=== PATIENT | female | born 1990 ===

== ENCOUNTER 2017-12-05 13:40 | Emergency (ER) | payer SELFPAY ==
[2017-12-05 13:55] VITALS: BMI 29.3
--- NOTE | 2017-12-05 14:03 | ED PDOC ---
Arrival/HPI - General Time Seen by Provider: 12/05/17 13:54 Historian: Patient - History of Present Illness Narrative History of Present Illness (Text): 12/05/17 13:55 A 27 year old female presents to the emergency department complaining of suicidal ideation with plan to take pills. Patient was seen at [facility] and instructed to come to the emergency room for further psych evaluation. Patient denies any fever, chills, nausea, vomiting, diarrhea, abdominal pain, chest pain, shortness of breath, cough, homicidal ideation, auditory/visual hallucinations or any other complaints. Time/Duration: Prior to Arrival Past Medical History - Provider Review Nursing Documentation Reviewed: Yes Family/Social History - Physician Review Nursing Documentation Reviewed: Yes Family/Social History: No Known Family HX Allergies/Home Meds Allergies/Adverse Reactions: Allergies No Known Allergies Allergy (Unverified 12/05/17 13:55) Home Medications: Home Meds Medication Instructions Recorded Confirmed Naproxen [Naprosyn] 0 mg PO PRN PRN 12/05/17 12/05/17 Review of Systems - Physician Review All systems were reviewed & negative as marked: Yes - Review of Systems Constitutional: absent: Fevers, Night Sweats Respiratory: absent: SOB, Cough Cardiovascular: absent: Chest Pain Gastrointestinal: absent: Abdominal Pain, Diarrhea, Nausea, Vomiting Psychiatric: Suicidal Ideation. absent: Other (Homicidal ideation, Hallucinations) Physical Exam Vital Signs Temp Pulse Resp BP Pulse Ox 12/05/17 18:47 77 18 124/82 99 12/05/17 13:50 97.5 F L 80 16 120/75 99 Appearance: Positive for: Well-Appearing, Non-Toxic, Comfortable Pain Distress: None Mental Status: Positive for: Alert and Oriented X 3 - Systems Exam Head: Present: Atraumatic, Normocephalic Pupils: Present: PERRL Extroacular Muscles: Present: EOMI Conjunctiva: Present: Normal Mouth: Present: Moist Mucous Membranes Respiratory/Chest: Present: Clear to Auscultation, Good Air Exchange. No: Respiratory Distress, Accessory Muscle Use Cardiovascular: Present: Regular Rate and Rhythm, Normal S1, S2. No: Murmurs Abdomen: Present: Normal Bowel Sounds. No: Tenderness, Distention, Peritoneal Signs Upper Extremity: Present: Normal Inspection. No: Cyanosis, Edema Lower Extremity: Present: Normal Inspection. No: Edema Neurological: Present: GCS=15, CN II-XII Intact, Speech Normal Skin: Present: Warm, Dry, Normal Color. No: Rashes Psychiatric: Present: Alert, Oriented x 3, Suicidal Ideation. No: Homicidal Ideation, Hallucinations Medical Decision Making ED Course and Treatment: 12/05/17 13:55 Impression: A 27 year old female with suicidal ideation. No somatic complaints. Differential Diagnosis included but are not limited to: Suicidal ideation Plan: -- Chest xray -- EKG -- Labs -- Urinalysis -- 1:1 -- Reassess and disposition Progress Notes: 12/05/17 14:35 EKG shows NSR at 95bpm with RAD. No st changes 12/05/17 15:18 Cxray negative. Labs reviewed. Patient medically cleared pending psych 12/05/17 16:49 Patient refusing voluntary psych admission. Plan is to have [facility] screener evaluate patient. 12/05/17 22:25 Patient continues to be pending [facility] screener. Will sign out to Dr. Christiansen to follow-up [facility] recommendations and reevaluate. - Lab Interpretations Lab Results: 12/05/17 14:00 12/05/17 14:00 Lab Results 12/05/17 14:00: Alcohol, Quantitative < 10 12/05/17 14:00: Salicylates < 1 L, Acetaminophen < 10.0 L 12/05/17 14:00: Urine Opiates Screen Negative, Urine Methadone Screen Negative, Ur Barbiturates Screen Negative, Ur Phencyclidine Scrn Negative, Ur Amphetamines Screen Negative, U Benzodiazepines Scrn Negative, U Oth Cocaine Metabols Negative, U Cannabinoids Screen Negative 12/05/17 14:00: Sodium 142, Potassium 3.8, Chloride 104, Carbon Dioxide 26, Anion Gap 16, BUN 11, Creatinine 0.6 L, Est GFR ( Amer) > 60, Est GFR ( Non-Af Amer) > 60, Random Glucose 96, Calcium 10.2, Total Bilirubin 0.3, AST 31 , ALT 26, Alkaline Phosphatase 83, Total Protein 9.0 H, Albumin 4.7, Globulin 4.3, Albumin/Globulin Ratio 1.1 12/05/17 14:00: Urine Color Yellow, Urine Appearance Clear, Urine pH 6.0, Ur Specific [place] >= 1.030, Urine Protein Negative, Urine Glucose (UA) Negative, Urine Ketones Trace H, Urine Blood Trace-intact H, Urine Nitrate Negative, Urine Bilirubin Negative, Urine Urobilinogen 0.2, Ur Leukocyte Esterase Negative , Urine RBC 0 - 2, Urine WBC 1 - 3, Ur Epithelial Cells 1 - 3, Amorphous Sediment Trace, Urine Bacteria Few 12/05/17 14:00: WBC 9.2, RBC 4.53, Hgb 13.4, Hct 39.1, MCV 86.3, MCH 29.6, MCHC 34.3, RDW 13.5, Plt Count 317, MPV 10.8, Gran % 44.7 L, Lymph % (Auto) 44.3 H, [place] % (Auto) 8.7 H, Eos % (Auto) 1.9, Baso % (Auto) 0.4, Gran # 4.09, Lymph # ( Auto) 4.1 H, [place] # (Auto) 0.8 H, Eos # (Auto) 0.2, Baso # (Auto) 0.04 I have reviewed the lab results: Yes - RAD Interpretation Radiology Orders: 12/05/17 13:58 CHEST PORTABLE [RAD] Stat - Scribe Statement The provider has reviewed the documentation as recorded by the Scribe Graciela Renae Provider Scribe Attestation: All medical record entries made by the Scribe were at my direction and personally dictated by me. I have reviewed the chart and agree that the record accurately reflects my personal performance of the history, physical exam, medical decision making, and the department course for this patient. I have also personally directed, reviewed, and agree with the discharge instructions and disposition. Disposition/Present on Arrival - Present on Arrival Any Indicators Present on Arrival: No - Disposition Have Diagnosis and Disposition been Completed?: Yes Diagnosis: Depression Disposition Time: 21:08 Patient Problems: Current Active Problems Problem Status Onset Depression Acute Condition: FAIR Referrals: PCP,NO [Primary Care Provider] - Follow up with primary
[2017-12-05 14:11] LABS: BASO # 0.04 K/mm3 (0.0-2.0); BASO % 0.4 % (0.0-3.0); EOS # 0.2 (0.0-0.7); EOS % 1.9 % (1.5-5.0); GRAN # 4.09 (1.4-6.5); GRAN % 44.7 % (50.0-68.0); HEMOGLOBIN 13.4 g/dL (12.0-16.0); LYMPH # 4.1 (1.2-3.4); LYMPH % 44.3 % (22.0-35.0); MEAN CELL VOLUME 86.3 fl (80.0-105.0); MEAN CORPUSCULAR HEMOGLOBIN 29.6 pg (25.0-35.0); MEAN CORPUSCULAR HGB CONC 34.3 g/dl (31.0-37.0); MEAN PLATELET VOLUME 10.8 fl (7.0-11.0); MONO # 0.8 (0.1-0.6); MONO % 8.7 % (1.0-6.0); RBC 4.53 10^6/uL (3.5-6.1); RED CELL DISTRIBUTION WIDTH 13.5 % (11.5-14.5); WHITE BLOOD COUNT 9.2 10^3/ul (4.5-11.0)
[2017-12-05 14:13] LABS: URINE BILIRUBIN NEGATIVE (NEGATIVE); URINE BLOOD TRACE-INTACT (NEGATIVE); URINE GLUCOSE (UA) NEGATIVE (NEGATIVE); URINE LEUKOCYTE ESTERASE NEGATIVE Leu/uL (NEGATIVE); URINE PROTEIN NEGATIVE mg/dL (<30 mg/dL); URINE UROBILINOGEN 0.2 E.U./dL (<1 E.U./dL)
[2017-12-05 14:14] LABS: URINE APPEARANCE CLEAR (CLEAR); URINE COLOR YELLOW (YELLOW)
[2017-12-05 14:20] LABS: ALB/GLOB RATIO 1.1 (1.1-1.8); ALBUMIN 4.7 g/dL (3.0-4.8); ALT/SGPT 26 U/L (7-56); AST/SGOT 31 U/L (14-36); BLOOD UREA NITROGEN 11 mg/dL (7-21); CALCIUM 10.2 mg/dL (8.4-10.5); GFR AFRICAN-AMERICAN > 60; GFR NON-AFRICAN AMERICAN > 60
[2017-12-05 14:22] LABS: URINE AMORPHOUS SEDIMENT TRACE; URINE BACTERIA FEW (NEG); URINE RBC 0 - 2 /hpf (0-2)
[2017-12-05 14:27] LABS: ACETAMINOPHEN < 10.0 ug/ml (10.0-20.0); SALICYLATE < 1 mg/dL (2.0-20.0)
[2017-12-05 14:48] LABS: BARBITURATES, UR NEGATIVE (NEGATIVE); BENZODIAZEPINES, UR NEGATIVE (NEGATIVE); OPIATES, UR NEGATIVE (NEGATIVE); PHENCYCLIDINE, UR NEGATIVE (NEGATIVE)
--- NOTE | 2017-12-05 15:30 | RAD ---
HISTORY: psych COMPARISON: No prior. FINDINGS: LUNGS: No active pulmonary disease. PLEURA: No significant pleural effusion identified, no pneumothorax apparent. CARDIOVASCULAR: Normal. OSSEOUS STRUCTURES: No significant abnormalities. VISUALIZED UPPER ABDOMEN: Normal. OTHER FINDINGS: None. IMPRESSION: No active disease.
[2017-12-05 18:48] VITALS: RESP 18
--- NOTE | 2017-12-05 23:08 | ED PDOC ---
Physical Exam Vital Signs Temp Pulse Resp BP Pulse Ox 12/05/17 18:47 77 18 124/82 99 12/05/17 13:50 97.5 F L 80 16 120/75 99 Medical Decision Making ED Course and Treatment: 12/05/17 23:00 Case endorsed to me by Dr. Massey, pending [facility] screening and disposition. Pt presented for suicidal ideation. 12/06/17 01:55 Pt seen and evaluated by [facility] screener. Pt is not commitable as per [facility] screener and [facility] psychiatrist. As per [facility] screener, pt denied any suicidal ideation and homicidal ideation. As per Dr. Malik Castillo, she requested the pt be signed out against psychiatric advice as she refused to be admitted for inpatient psychiatric treatment. Pt present with family, both pt and family understand they are signing out against psychiatric advice, as requested by Dr. Castillo. Pt to f/u outpt as per psychiatry. - Lab Interpretations Lab Results: 12/05/17 14:00 12/05/17 14:00 Lab Results 12/05/17 14:00: Alcohol, Quantitative < 10 12/05/17 14:00: Salicylates < 1 L, Acetaminophen < 10.0 L 12/05/17 14:00: Urine Opiates Screen Negative, Urine Methadone Screen Negative, Ur Barbiturates Screen Negative, Ur Phencyclidine Scrn Negative, Ur Amphetamines Screen Negative, U Benzodiazepines Scrn Negative, U Oth Cocaine Metabols Negative, U Cannabinoids Screen Negative 12/05/17 14:00: Sodium 142, Potassium 3.8, Chloride 104, Carbon Dioxide 26, Anion Gap 16, BUN 11, Creatinine 0.6 L, Est GFR ( Amer) > 60, Est GFR ( Non-Af Amer) > 60, Random Glucose 96, Calcium 10.2, Total Bilirubin 0.3, AST 31 , ALT 26, Alkaline Phosphatase 83, Total Protein 9.0 H, Albumin 4.7, Globulin 4.3, Albumin/Globulin Ratio 1.1 12/05/17 14:00: Urine Color Yellow, Urine Appearance Clear, Urine pH 6.0, Ur Specific [place] >= 1.030, Urine Protein Negative, Urine Glucose (UA) Negative, Urine Ketones Trace H, Urine Blood Trace-intact H, Urine Nitrate Negative, Urine Bilirubin Negative, Urine Urobilinogen 0.2, Ur Leukocyte Esterase Negative , Urine RBC 0 - 2, Urine WBC 1 - 3, Ur Epithelial Cells 1 - 3, Amorphous Sediment Trace, Urine Bacteria Few 12/05/17 14:00: WBC 9.2, RBC 4.53, Hgb 13.4, Hct 39.1, MCV 86.3, MCH 29.6, MCHC 34.3, RDW 13.5, Plt Count 317, MPV 10.8, Gran % 44.7 L, Lymph % (Auto) 44.3 H, [place] % (Auto) 8.7 H, Eos % (Auto) 1.9, Baso % (Auto) 0.4, Gran # 4.09, Lymph # ( Auto) 4.1 H, [place] # (Auto) 0.8 H, Eos # (Auto) 0.2, Baso # (Auto) 0.04 - RAD Interpretation Radiology Orders: 12/05/17 13:58 CHEST PORTABLE [RAD] Stat Disposition/Present on Arrival - Present on Arrival Any Indicators Present on Arrival: No History of DVT/PE: No History of Uncontrolled Diabetes: No Urinary Catheter: No History of Decub. Ulcer: No History Surgical Site Infection Following: None - Disposition Have Diagnosis and Disposition been Completed?: Yes Diagnosis: Depression Disposition: AGAINST MEDICAL ADVICE Disposition Time: 02:33 Patient Problems: Current Active Problems Problem Status Onset Depression Acute Condition: STABLE Referrals: PCP,NO [Primary Care Provider] - Follow up with primary Forms: SCHOOL NOTE
[2017-12-06 06:34] VITALS: BP 124/81; PULSE 76; TEMP 97.8; O2SAT 98
--- NOTE | 2017-12-07 10:44 | CARD ---
APPROVED REPORT EKG Measurement Heart [id number] <Conclusion> Normal sinus rhythm with sinus arrhythmia Rightward axis
== END 2017-12-06 01:45 | disposition left against medical advice (07) ==
LOC: ED 13:40
DX: F32.9 Major depressive disorder, single episode, unspecified (principal)
CPT/HCPCS: 71045; 80053; 81001; 85025; 90791; 93005; 99285; G0480

== ENCOUNTER 2018-02-18 18:37 | Emergency (ER) | payer OTHER ==
[2018-02-18 18:40] VITALS: BMI 29.3
[2018-02-18] MEDS ORDERED: Sodium Chloride 0.9% 1,000 ML IV STA (19:30)
--- NOTE | 2018-02-18 19:52 | ED PDOC ---
Arrival/HPI - General Chief Complaint: Dizziness/Lightheaded Time Seen by Provider: 02/18/18 18:48 Historian: Patient - History of Present Illness Narrative History of Present Illness (Text): 02/18/18 19:00 pt p/w + ~ < 1 day onset of dizziness/lightheadedness, while in the shower today , nearly passing out; pt felt mild sob at that time; pt also felt sudden onset of right lower abd cramps/pain lasting < 5 min; pt states the abd cramps/pain improved and currently has NO PAIN; pt states dizziness/lightheadedness remains ; pt states over the last 3 weeks, pt has been on a new antipsychotic medication Geodon; pt was initially taking 40mg Daily, over the last 1 week, pt has been directed to take Geodon 40mg BID; pt states she has no vision changes, no hawkins, no neck pain, no cp/sob/palpitations, no abd pain, no n/v, no numbness/ tingling, no urinary/bowel changes, no incontinence, no fall/trauma/sick contact , no travel. pt denied slurr speech pt denied other complaints pt states no new auditory hallucinations; no Hallucinations - visual/tactile; pt denied SI/HI pt is here for further eval. PCP: ? partial care psych pt lives with family Time/Duration: Prior to Arrival Symptom Onset: Sudden Symptom Course: Improving Activities at Onset: Other (during shower) Context: Home Past Medical History - Provider Review Nursing Documentation Reviewed: Yes - Travel History Have you recently traveled outside [place] w/in the past 3 mons?: No - Past History Past History: No Previous - Infectious Disease Hx of Infectious Diseases: None - Reproductive Menopause: No Currently : Unknown - Cardiac Hx Cardiac Disorders: No Hx Hypertension: No - Pulmonary Hx Tuberculosis: No - Neurological HX Cerebrovascular Accident: No Hx Seizures: No - Hematological/Oncological Hx Cancer: No - Genitourinary/Gynecological Hx Sexually Transmitted Diseases: No - Psychiatric Hx Substance Use: No - Anesthesia Hx Anesthesia: No Hx Anesthesia Reactions: No Hx Malignant Hyperthermia: No Family/Social History - Physician Review Nursing Documentation Reviewed: Yes Family/Social History: No Known Family HX Smoking Status: Never Smoked Hx Alcohol Use: No Hx Substance Use: No Hx Substance Use Treatment: No Allergies/Home Meds Allergies/Adverse Reactions: Allergies No Known Allergies Allergy (Unverified 12/05/17 13:55) Home Medications: Home Meds Medication Instructions Recorded Confirmed Naproxen [Naprosyn] 0 mg PO PRN PRN 12/05/17 12/05/17 Review of Systems - Review of Systems Constitutional: Fatigue. absent: Weight Change, Fevers, Night Sweats Eyes: Normal ENT: Normal Respiratory: Normal Cardiovascular: Normal Gastrointestinal: Abdominal Pain. absent: Stool Changes, Nausea, Vomiting Genitourinary Female: Normal Musculoskeletal: Normal Skin: Normal Neurological: Dizziness Endocrine: Normal Hemo/Lymphatic: Normal Psychiatric: Normal Physical Exam - Physical Exam Narrative Physical Exam (Text): 02/18/18 1900 General: alert/awake, GCS = 15, oriented x 3, resting in bed, uncomfortable, cooperative, interactive; NAD; appearing slightly groggy Head: NC/AT EYE: PERRLA, EOMI, sclera anicteric, no nystagmus, no photophobia; visual field intact b/l Facial: WNL Oral: uvula/tongue are midline, no exudate/lesions, no drooling/stridor, no dysphonia; intact dentitions; moist oral mucosa NECK: intact ROM, no midline tenderness, no nuchal rigidity, no meningeal signs ; no step off Chest: CTA b/l, no w/r/r; no tachypenia, no accessory muscle use noted Chest Wall: no crepitus, no lesions, no gross deformities, no focal tenderness Cardiac: +S1, +S2, no m/r/r, no tachycardia Abdominal: +BS, soft/nd/nt, well nourished patient; no masses/rebound/guarding/ rigidity; no mcintyre's sign, no mcburney's point tenderness; NO psoas sign, NO obturator sign Extremities: intact ROM, strength 5/5 grossly intact in all limbs, neurovasc intact b/l; + ambulatory; reflex +2/2 BACK: no step off, no midline tenderness, NO crepitus, no gross deformities noted; Intact ROM SKIN: cap refill < 1 sec, no ulcerations, no petechiae, no rashes NEURO: CNII-XII WNL, no facial asymmetries, no slurr speech, oriented x 3 NIH stroke scale ~ 0 Psych: normal insight, flat affect; follows command with ease Vital Signs Reviewed: Yes Temperature: Afebrile Blood Pressure: Normal Pulse: Regular Respiratory Rate: Normal Appearance: Positive for: Well-Appearing, Non-Toxic, Comfortable. No: Ill- Appearing, Unkept Pain Distress: None Mental Status: Positive for: Alert and Oriented X 3 - Systems Exam Head: Present: Atraumatic, Normocephalic Medical Decision Making ED Course and Treatment: 02/18/18 1900 Impression: dizziness/lightheadedness, one short episode of right lower abd cramp i have consider all the differential diagnosis regarding pt's chief medical complaints/clinical findings, including but are not limited to: medication side effect; general medical exam; dehydration/hypovolemia A/P: dizziness/lightheadedness - labs - iv - ua - supportive care - observe/reevaluation 0 pt is doing well pt is comfortable, NAD pt is awaiting her CT diagnostics 02/18/18 23:05 pt remained comfortable pt is not dizzy/lightheaded currently abd re-exam: NO focal tenderness noted, +BS, soft/nd/nt, no mcintyre's sign, no mcburney's point tenderness, no masses/rebound/guarding/rigidity pt is made aware of her medical results pt is encouraged hydration pt is encouraged outpt f/u with her psychiatrists regarding medication Geodon pt will be discharged home PT is instructed on symptoms of APPY (i.e, right lower abd pain, poor appetite, fever, bloody diarrhea), pt is encouraged to be brought back to ED immediately for further eval with the said above symptoms; pt expressed understanding Re-evaluation Time: 23:05 Reassessment Condition: Improved - Lab Interpretations Lab Results: 02/18/18 20:05 02/18/18 20:05 Lab Results 02/18/18 20:20: Urine Color Light yellow, Urine Appearance Clear, Urine pH 6.0, Ur Specific [place] 1.025, Urine Protein Negative, Urine Glucose (UA) Negative, Urine Ketones Negative, Urine Blood Small H, Urine Nitrate Negative, Urine Bilirubin Negative, Urine Urobilinogen 0.2, Ur Leukocyte Esterase Trace H, Urine RBC 0 - 2, Urine WBC 1 - 3, Ur Epithelial Cells 1 - 3, Urine Bacteria Trace 02/18/18 20:05: TSH 3rd Generation 2.09, Alcohol, Quantitative < 10 02/18/18 20:05: Salicylates < 1 L, Acetaminophen < 10.0 L 02/18/18 20:05: Sodium 143, Potassium 3.9, Chloride 104, Carbon Dioxide 26, Anion Gap 17, BUN 9, Creatinine 0.6 L, Est GFR ( Amer) > 60, Est GFR (Non -Af Amer) > 60, Random Glucose 108, Calcium 9.2, Magnesium 2.1, Total Bilirubin < 0.1 L, AST 26, ALT 29, Alkaline Phosphatase 89, Total Protein 8.2, Albumin 4.5 , Globulin 3.7, Albumin/Globulin Ratio 1.2 02/18/18 20:05: WBC 7.3 D, RBC 4.28, Hgb 12.5, Hct 36.5, MCV 85.3, MCH 29.2, MCHC 34.2, RDW 13.1, Plt Count 260, MPV 10.6, Gran % 51.1, Lymph % (Auto) 40.3 H , [place] % (Auto) 6.9 H, Eos % (Auto) 1.4 L, Baso % (Auto) 0.3, Gran # 3.71, Lymph # (Auto) 2.9, [place] # (Auto) 0.5, Eos # (Auto) 0.1, Baso # (Auto) 0.02 I have reviewed the lab results: Yes Interpretation: All labs normal - RAD Interpretation Narrative RAD Interpretations (Text): 02/18/18 23:22 CT Scan HEAD W/O CONTRAST Exam Date: 02/18/18 This imaging exam was performed at [facility] [place] EXAM: CT Head Without Intravenous Contrast EXAM DATE/TIME: 02/18/2018 7:29 PM CLINICAL HISTORY: 27 years old, female; Signs and symptoms; Dizziness; Additional info: Dizziness, no trauma TECHNIQUE: Axial computed tomography images of the head/brain without intravenous contrast. All CT scans at this facility use one or more dose reduction techniques, viz.: automated exposure control; ma/kV adjustment per patient size (including targeted exams where dose is matched to indication; i.e. head); or iterative reconstruction technique. Coronal and sagittal reformatted images were created and reviewed. COMPARISON: No relevant prior studies available. FINDINGS: No intracranial hemorrhage. No intracranial edema. No evidence of infarct. The sinuses and mastoid air cells are clear. IMPRESSION: No acute findings. 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 - EKG Interpretation EKG Interpretation (Text): 02/18/18 22:56 NSR at 75 bpm, normal axis, no ectopy, qs in leads III, inverted T in leads V1-2 , no st changes, BORDERLINE EKG; unchanged compare with old ekg 11/2017 Interpreted by ED Physician: Yes Type: 12 lead EKG Comparison: Similar to previous EKG - Medication Orders Current Medication Orders: Discontinued Medications Sodium Chloride (Sodium Chloride 0.9%) 1,000 mls @ 999 mls/hr IV .Q1H1M STA Stop: 02/18/18 20:30 Last Admin: 02/18/18 19:45 Dose: 999 mls/hr eMAR Start Stop Document 02/18/18 19:45 RG (Rec: 02/18/18 21:05 RG [id number]) Intravenous Solution Start Date 02/18/18 Start Time 19:45 End Date 02/18/18 End time 20:45 Total Infusion Time 60 Disposition/Present on Arrival - Present on Arrival Any Indicators Present on Arrival: No History of DVT/PE: No History of Uncontrolled Diabetes: No Urinary Catheter: No History of Decub. Ulcer: No History Surgical Site Infection Following: None - Disposition Have Diagnosis and Disposition been Completed?: Yes Diagnosis: Dizziness, Lightheadedness, Dehydration, Medication side effect Disposition: HOME/ ROUTINE Disposition Time: 23:05 Patient Plan: Discharge Patient Problems: Current Active Problems Problem Status Onset Dehydration Acute Dizziness Acute Lightheadedness Acute Medication side effect Acute Condition: STABLE Discharge Instructions (ExitCare): Dehydration, Adult (DC), Side Effects From Medicines, Dizziness, Nonvertigo, (DC) Print Language: SETSWANA Additional Instructions: Make sure to see your doctor in 1-2 days DRINK PLENTY OF FLUIDS take your medications as prescribed RETURN TO ED IF worse pain, cant breath, persistent vomiting, high fever >101- 102 for hours, altered behavior, slurr speech, facial changes, focal weakness ( arm/leg or both), unable to urinate, heavy/persistent bleeding, passing out, chest pain, or other medical emergencies Referrals: PCP,NO [Primary Care Provider] - Follow up with primary [facility] [Outside] - Follow up with primary [facility] [Outside] - Follow up with primary [facility] [Outside] - Follow up with primary [facility] [Outside] - Follow up with primary Forms: RECESS. (Malagasy)
[2018-02-18 20:34] LABS: URINE APPEARANCE CLEAR (CLEAR); URINE BILIRUBIN NEGATIVE (NEGATIVE); URINE BLOOD SMALL (NEGATIVE); URINE COLOR LIGHT YELLOW (YELLOW); URINE GLUCOSE (UA) NEGATIVE (NEGATIVE); URINE LEUKOCYTE ESTERASE TRACE Leu/uL (NEGATIVE); URINE PROTEIN NEGATIVE mg/dL (<30 mg/dL); URINE UROBILINOGEN 0.2 E.U./dL (<1 E.U./dL)
[2018-02-18 20:35] LABS: BASO # 0.02 K/mm3 (0.0-2.0); BASO % 0.3 % (0.0-3.0); EOS # 0.1 (0.0-0.7); EOS % 1.4 % (1.5-5.0); GRAN # 3.71 (1.4-6.5); GRAN % 51.1 % (50.0-68.0); HEMOGLOBIN 12.5 g/dL (12.0-16.0); LYMPH # 2.9 (1.2-3.4); LYMPH % 40.3 % (22.0-35.0); MEAN CELL VOLUME 85.3 fl (80.0-105.0); MEAN CORPUSCULAR HEMOGLOBIN 29.2 pg (25.0-35.0); MEAN CORPUSCULAR HGB CONC 34.2 g/dl (31.0-37.0); MEAN PLATELET VOLUME 10.6 fl (7.0-11.0); MONO # 0.5 (0.1-0.6); MONO % 6.9 % (1.0-6.0); RBC 4.28 10^6/uL (3.5-6.1); RED CELL DISTRIBUTION WIDTH 13.1 % (11.5-14.5); WHITE BLOOD COUNT 7.3 10^3/ul (4.5-11.0)
[2018-02-18 20:53] LABS: URINE BACTERIA TRACE (NEG); URINE RBC 0 - 2 /hpf (0-2)
[2018-02-18 20:55] LABS: ALB/GLOB RATIO 1.2 (1.1-1.8); ALBUMIN 4.5 g/dL (3.0-4.8); ALT/SGPT 29 U/L (7-56); AST/SGOT 26 U/L (14-36); BLOOD UREA NITROGEN 9 mg/dL (7-21); CALCIUM 9.2 mg/dL (8.4-10.5); GFR AFRICAN-AMERICAN > 60; GFR NON-AFRICAN AMERICAN > 60
[2018-02-18 20:57] LABS: ACETAMINOPHEN < 10.0 ug/ml (10.0-20.0); SALICYLATE < 1 mg/dL (2.0-20.0)
--- NOTE | 2018-02-18 23:15 | CT ---
EXAM: CT Head Without Intravenous Contrast EXAM DATE/TIME: 02/18/2018 7:29 PM CLINICAL HISTORY: 27 years old, female; Signs and symptoms; Dizziness; Additional info: Dizziness, no trauma TECHNIQUE: Axial computed tomography images of the head/brain without intravenous contrast. All CT scans at this facility use one or more dose reduction techniques, viz.: automated exposure control; ma/kV adjustment per patient size (including targeted exams where dose is matched to indication; i.e. head); or iterative reconstruction technique. Coronal and sagittal reformatted images were created and reviewed. COMPARISON: No relevant prior studies available. FINDINGS: No intracranial hemorrhage. No intracranial edema. No evidence of infarct. The sinuses and mastoid air cells are clear. IMPRESSION: No acute findings.
[2018-02-19 00:39] VITALS: BP 120/55; PULSE 79; RESP 18; TEMP 98.7; O2SAT 97
--- NOTE | 2018-02-19 22:40 | CARD ---
APPROVED REPORT EKG Measurement Heart [id number] <Conclusion> Normal sinus rhythm Rightward axis Nonspecific T wave abnormality Abnormal ECG
== END 2018-02-18 23:10 | disposition home or self-care (01) ==
LOC: ED 18:37
DX: E86.0 Dehydration (principal); R42 Dizziness and giddiness; T50.995A Adverse effect of other drugs, medicaments and biological substances, initial encounter; Y92.89 Other specified places as the place of occurrence of the external cause
CPT/HCPCS: 70450; 80053; 80320; 80329; 81001; 83735; 84443; 85025; 87086; 93005; 96360; 99285; J7030

== ENCOUNTER 2018-03-11 19:28 | Inpatient (IN) | payer OTHER ==
[2018-03-11 19:51] VITALS: BMI 23.6
--- NOTE | 2018-03-11 19:57 | ED PDOC ---
Arrival/HPI - General Historian: Patient EM Caveat: Acuity of Condition - History of Present Illness Time/Duration: < week Symptom Onset: Gradual Symptom Course: Unchanged, Worsening Quality: Unable to Describe Severity Level: 1 Activities at Onset: Rest Context: Home - General Chief Complaint: Psychiatric Evaluation Time Seen by Provider: 03/11/18 19:39 - History of Present Illness Narrative History of Present Illness (Text): 03/11/18 20:09 Pt is a 27 yr old female with past medical history of schizoaffective bipolar disorder who presents with insomnia, nausea and episodal suicidal ideation for 2 days after beginning a new drug combination. Pt says that she was on Geodon and was switched to oxycarbazapine 300mg BID 2 days ago in addition to aripiprazole 15mg. Reports that she has suicidal thoughts but has not planned it out. States she only gets 3 hrs of sleep per night after taking the new medication. Denies chest pain, shortness of breath, vomiting, diarrhea, HI, illicit drug use or alcohol. (Balbina Jackson) Past Medical History - Provider Review Nursing Documentation Reviewed: Yes - Travel History Have you recently traveled outside [place] w/in the past 3 mons?: No - Past History Past History: No Previous - Infectious Disease Hx of Infectious Diseases: None - Cardiac Hx Cardiac Disorders: No Hx Hypertension: No - Pulmonary Hx Tuberculosis: No - Neurological HX Cerebrovascular Accident: No Hx Seizures: No - Hematological/Oncological Hx Cancer: No - Genitourinary/Gynecological Hx Sexually Transmitted Diseases: No - Psychiatric Hx Substance Use: No - Anesthesia Hx Anesthesia: No Hx Anesthesia Reactions: No Hx Malignant Hyperthermia: No Family/Social History - Physician Review Nursing Documentation Reviewed: Yes Family/Social History: Unknown Family HX Smoking Status: Never Smoked Hx Alcohol Use: No Hx Substance Use: No Hx Substance Use Treatment: No Allergies/Home Meds Allergies/Adverse Reactions: Allergies No Known Allergies Allergy (Unverified 03/12/18 02:41) Home Medications: Home Meds Medication Instructions Recorded Confirmed ARIPiprazole [Abilify] 15 mg PO DAILY 03/11/18 03/12/18 Oxcarbazepine [Trileptal] 300 mg PO BID 03/11/18 03/12/18 Review of Systems - Review of Systems Constitutional: Fatigue, Other (insomnia) Eyes: Normal ENT: Normal Respiratory: Normal. absent: SOB Cardiovascular: Normal. absent: Chest Pain Gastrointestinal: Appetite Changes, Anorexia, Food Intolerance Genitourinary Female: Normal Musculoskeletal: Normal Skin: Normal Neurological: Normal. absent: Headache, Dizziness Endocrine: Normal Hemo/Lymphatic: Normal Psychiatric: Anxiety, Depression, Suicidal Ideation Physical Exam Vital Signs Reviewed: Yes Temperature: Afebrile Blood Pressure: Normal Pulse: Regular Respiratory Rate: Normal Appearance: Positive for: Well-Appearing, Non-Toxic, Comfortable Pain Distress: None Mental Status: Positive for: Alert and Oriented X 3 - Systems Exam Head: Present: Atraumatic, Normocephalic Pupils: Present: PERRL Extroacular Muscles: Present: EOMI Conjunctiva: Present: Normal Mouth: Present: Moist Mucous Membranes Neck: Present: Normal Range of Motion Respiratory/Chest: Present: Clear to Auscultation, Good Air Exchange. No: Respiratory Distress, Accessory Muscle Use Cardiovascular: Present: Regular Rate and Rhythm, Normal S1, S2. No: Murmurs Abdomen: Present: Normal Bowel Sounds. No: Tenderness, Distention, Peritoneal Signs Back: Present: Normal Inspection Upper Extremity: Present: Normal Inspection. No: Cyanosis, Edema Lower Extremity: Present: Normal Inspection. No: Edema Neurological: Present: GCS=15, CN II-XII Intact, Speech Normal Skin: Present: Warm, Dry, Normal Color. No: Rashes Psychiatric: Present: Alert, Oriented x 3, Normal Insight, Anxious, Depressed Mood, Suicidal Ideation, Lethargic. No: Normal Mood, Agitated, Homicidal Ideation, Delusional, Hallucinations, Intoxicated Vital Signs Temp Pulse Resp BP Pulse Ox 03/11/18 21:29 98 F 75 19 124/53 L 99 Medical Decision Making - Lab Interpretations Interpretation: All labs normal - EKG Interpretation Interpreted by ED Physician: Yes (NSR with sinus arrhythmia, rightward axis, rate of 65 ) ED Course and Treatment: 03/12/18 00:00 Pt seen and evaluated by PES love Soriano, who discussed case with psychiatrist animal nutrition consultant. Ptg will be admitted to Behavioral Health for schizoaffective disorder. Pt agreeable with plan. (Derek Alamo) 03/11/18 20:26 Impression Pt is a 27 yr old female with past medical history of schizoaffective bipolar disorder who presents with insomnia, nausea and suicidal ideation for 2 days after beginning a new drug combination. On exam, A&Ox3 but slow speech and movements, the rest of the exam in unremarkable Plan Labs and UA, poc hcg, ecg psych consult assess and dispo Progress note 03/11/18 21:01 awaiting psych consult labs pending hcg neg Case endorsed to Dr Alamo at 21:30 (Balbina Jackson) - Lab Interpretations Lab Results: 03/11/18 20:20 03/11/18 20:20 Lab Results 03/11/18 20:20: WBC 7.0, RBC 4.29, Hgb 12.2, Hct 36.2, MCV 84.4, MCH 28.4, MCHC 33.7, RDW 13.1, Plt Count 267, MPV 10.5, Gran % 43.8 L, Lymph % (Auto) 48.1 H, [place] % (Auto) 7.0 H, Eos % (Auto) 0.7 L, Baso % (Auto) 0.4, Gran # 3.07, Lymph # (Auto) 3.4, [place] # (Auto) 0.5, Eos # (Auto) 0.1, Baso # (Auto) 0.03 03/11/18 20:20: Alcohol, Quantitative < 10 03/11/18 20:20: Urine Opiates Screen Negative, Urine Methadone Screen Negative, Ur Barbiturates Screen Negative, Ur Phencyclidine Scrn Negative, Ur Amphetamines Screen Negative, U Benzodiazepines Scrn Negative, U Oth Cocaine Metabols Negative, U Cannabinoids Screen Negative 03/11/18 20:20: Sodium 144, Potassium 3.8, Chloride 105, Carbon Dioxide 24, Anion Gap 19, BUN 13, Creatinine 0.6 L, Est GFR ( Amer) > 60, Est GFR ( Non-Af Amer) > 60, Random Glucose 92, Calcium 9.4, Total Bilirubin 0.2, AST 21, ALT 32, Alkaline Phosphatase 61, Total Protein 8.5 H, Albumin 4.5, Globulin 4.0 , Albumin/Globulin Ratio 1.1 03/11/18 20:20: Urine Color Yellow, Urine Appearance Clear, Urine pH 6.0, Ur Specific [place] 1.025, Urine Protein Negative, Urine Glucose (UA) Negative, Urine Ketones Negative, Urine Blood Small H, Urine Nitrate Negative, Urine Bilirubin Negative, Urine Urobilinogen 0.2, Ur Leukocyte Esterase Negative, Urine RBC 0 - 2, Urine WBC 2 - 5, Ur Epithelial Cells 1 - 3, Urine Bacteria Few - Medication Orders Current Medication Orders: Acetaminophen (Tylenol 325mg Tab) 650 mg PO Q4H PRN PRN Reason: Pain, Mild (1-3) Al Hydrox/Mg Hydrox/Simethicone (Maalox Plus 30 Ml) 30 ml PO DAILY PRN PRN Reason: Upset Stomach Aripiprazole (Abilify) 10 mg PO DAILY [facility] Citalopram Hydrobromide (Celexa) 10 mg PO DAILY [facility] Last Admin: 03/12/18 09:29 Dose: 10 mg Clonazepam (Klonopin) 0.25 mg PO BID [facility] PRN Reason: Protocol Magnesium Hydroxide (Milk Of Magnesia) 30 ml PO DAILY PRN PRN Reason: Constipation Zaleplon (Sonata) 5 mg PO HS PRN PRN Reason: Insomnia Last Admin: 03/12/18 02:00 Dose: 5 mg Discontinued Medications Aripiprazole (Abilify) 5 mg PO DAILY [facility] Last Admin: 03/12/18 09:29 Dose: 5 mg Behavioural Document 03/12/18 09:29 TW (Rec: 03/12/18 09:29 [id number] Maintenance Maintenance Dose Yes Re-Assess: Reassess Psych Meds Document 03/12/18 10:29 TW (Rec: 03/12/18 10:50 [id number] Reassess Psych Med Effective Disposition/Present on Arrival - Present on Arrival Any Indicators Present on Arrival: Yes History of DVT/PE: No History of Uncontrolled Diabetes: No Urinary Catheter: No History Surgical Site Infection Following: None - Disposition Have Diagnosis and Disposition been Completed?: Yes Disposition Time: 00:00 Patient Plan: Admission - Disposition Diagnosis: Medication adverse effect, MDD (major depressive disorder), recurrent episode, moderate, Insomnia, Suicidal ideations Disposition: HOSPITALIZED Patient Problems: Current Active Problems Problem Status Onset Insomnia Acute MDD (major depressive disorder), recurrent episode, moderate Acute Medication adverse effect Acute Suicidal ideations Acute Condition: STABLE
[2018-03-11 21:00] LABS: ALB/GLOB RATIO 1.1 (1.1-1.8); ALBUMIN 4.5 g/dL (3.0-4.8); ALT/SGPT 32 U/L (7-56); AST/SGOT 21 U/L (14-36); BLOOD UREA NITROGEN 13 mg/dL (7-21); CALCIUM 9.4 mg/dL (8.4-10.5); GFR NON-AFRICAN AMERICAN > 60
[2018-03-11 21:08] LABS: BARBITURATES, UR NEGATIVE (NEGATIVE); BENZODIAZEPINES, UR NEGATIVE (NEGATIVE); OPIATES, UR NEGATIVE (NEGATIVE); PHENCYCLIDINE, UR NEGATIVE (NEGATIVE)
[2018-03-11 21:11] LABS: BASO # 0.03 K/mm3 (0.0-2.0); BASO % 0.4 % (0.0-3.0); EOS # 0.1 (0.0-0.7); EOS % 0.7 % (1.5-5.0); GRAN # 3.07 (1.4-6.5); GRAN % 43.8 % (50.0-68.0); HEMOGLOBIN 12.2 g/dL (12.0-16.0); LYMPH # 3.4 (1.2-3.4); LYMPH % 48.1 % (22.0-35.0); MEAN CELL VOLUME 84.4 fl (80.0-105.0); MEAN CORPUSCULAR HEMOGLOBIN 28.4 pg (25.0-35.0); MEAN CORPUSCULAR HGB CONC 33.7 g/dl (31.0-37.0); MEAN PLATELET VOLUME 10.5 fl (7.0-11.0); MONO # 0.5 (0.1-0.6); RBC 4.29 10^6/uL (3.5-6.1); RED CELL DISTRIBUTION WIDTH 13.1 % (11.5-14.5); URINE BILIRUBIN NEGATIVE (NEGATIVE); URINE BLOOD SMALL (NEGATIVE); URINE GLUCOSE (UA) NEGATIVE (NEGATIVE); URINE LEUKOCYTE ESTERASE NEGATIVE Leu/uL (NEGATIVE); URINE PROTEIN NEGATIVE mg/dL (<30 mg/dL); URINE UROBILINOGEN 0.2 E.U./dL (<1 E.U./dL)
[2018-03-11 21:14] LABS: URINE APPEARANCE CLEAR (CLEAR); URINE COLOR YELLOW (YELLOW)
[2018-03-11 22:09] LABS: URINE BACTERIA FEW (NEG); URINE RBC 0 - 2 /hpf (0-2)
[2018-03-11] MEDS ORDERED: Magnesium Hydroxide Susp 30 ml UD PO PRN (23:45)
[2018-03-11] MEDS ORDERED: Alum-Mag Hydrox-Simethicone Susp (30 mL) PO PRN (23:45)
[2018-03-12 01:45] VITALS: O2SAT 100
[2018-03-12 02:28] VITALS: RESP 20
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
[2018-03-12 07:49] LABS: GLUCOSE,FASTING 93 mg/dL (65-110); HDL CHOLESTEROL 43 mg/dL (29-60)
[2018-03-12 07:59] LABS: LDL CHOLESTEROL 96 mg/dL (0-129)
--- NOTE | 2018-03-12 09:17 | CARD ---
APPROVED REPORT EKG Measurement Heart [id number] <Conclusion> Normal sinus rhythm with sinus arrhythmia Rightward axis Borderline ECG
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
[2018-03-14 07:10] VITALS: BP 121/75; PULSE 76; TEMP 98.2
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
== END 2018-03-14 13:08 | disposition home or self-care (01) | DRG 885 ==
LOC: ED 19:28 → ERH 03-12 00:01 → PSYC 03-12 01:20
PROVIDERS: ADMIT Psychiatry & Neurology Psychiatry; ATTEND Psychiatry & Neurology Psychiatry
PROC: GZ3ZZZZ Medication Management (ICD-10-PCS; principal; 2018-03-12)
DX: F25.9 Schizoaffective disorder, unspecified (principal); F43.10 Post-traumatic stress disorder, unspecified; G47.00 Insomnia, unspecified